=== PATIENT | male | born 1950 | race African-American/Black ===

== ENCOUNTER 2019-12-16 21:27 | Emergency (ER) | payer MEDICARE ==
[~2019-12-16] VITALS: Ht 167.6 cm; Wt 55.0 kg
[2019-12-16 21:29] VITALS: BP 72/46
[2019-12-16] MEDS ORDERED: EPINEPHRINE 0.1MG/ML (1:10,000) 10ML SYR ONE (21:47)
[2019-12-16] MEDS ORDERED: DEXTROSE 50% WATER 50ML SYRINGE IV ONE (21:47)
[2019-12-16] MEDS ORDERED: NOREPINEPHRINE 8 MG in DEXT 5% WATER 242 ML IV STA (22:03)
[2019-12-16] MEDS ORDERED: NOREPINEPHRINE 8MG/250ML PMX 250 ML IV ONE (22:13)
[2019-12-16] MEDS ORDERED: SODIUM CHLORIDE 0.9% 1000ML BAG (SEPSIS BOLUS) IV ONE (22:15)
[2019-12-16] MEDS ORDERED: PIPERACILLIN/TAZ 3.375G PREMIX 50 ML IV ONE (22:15)
== END 2019-12-16 22:30 | disposition expired ==
LOC: ER 21:27
DX: I46.9 Cardiac arrest, cause unspecified (principal); K92.2 Gastrointestinal hemorrhage, unspecified
CPT/HCPCS: 31500; 36415; 36556; 86850; 86900; 86901; 86920; 92950; 93005; 94002; 99285; J3490; J7030; J7060; P9016